=== PATIENT | female | born 1960 | race Two or more races ===

== ENCOUNTER 2016-12-26 01:42 | Emergency (ER) | payer MEDICAID ==
[~2016-12-26] VITALS: Ht 157.5 cm; Wt 76.7 kg
[~2016-12-26 01:42] MED LIST: GLIP2.5T28; METF-370
[2016-12-26 02:22] VITALS: BP 132/81
[2016-12-26 02:59] LABS: Basophils # (auto) 0 uL; Basophils % (auto) 0.4 % (0.0-2.0); CONDITION Y; Eosinophils # (auto) 0.1 uL; Eosinophils % (auto) 0.6 % (0.0-7.0); Hematocrit 33.9 % (36.0-46.0); Hemoglobin 11.4 g/dL (12.2-16.2); Lymphocytes % (auto) 19.2 % (10.0-50.0); Mean Corpuscular Hemoglobin 28.6 pg (28.0-32.0); Mean Corpuscular Hgb Conc. 33.6 g/dL (32.0-36.0); Mean Corpuscular Volume 85.2 fL (80.0-100.0); Mean Platelet Volume 7.6 fL (7.4-10.4); Monocytes # (auto) 0.6 uL; Monocytes % (auto) 5.9 % (0.0-12.0); Neutrophils # (auto) 7.7 uL; Neutrophils % (auto) 73.9 % (37.0-80.0); Platelet Count (auto) 313 10^3/uL (140-450); Red Cell Distribution Width 13.2 % (11.6-16.0); White Blood Cell 10.4 10^3/uL (4.4-10.8)
[2016-12-26 03:20] LABS: Albumin 3.4 g/dL (3.4-5.0); Anion Gap 13 (5-15); Aspartate Aminotransferase 16 U/L (15-37); BUN/Creatinine Ratio 40.5; Blood Urea Nitrogen 34 mg/dL (7-18); Calcium 8.3 mg/dL (8.5-10.1); Carbon Dioxide 20 mmol/L (21-32); Chloride 108 mmol/L (98-107); GFR African American 90 mL/min; GFR Non-African American 74 mL/min; Glucose 156 mg/dL (74-106); Potassium 4.5 mmol/L (3.5-5.1); Sodium 141 mmol/L (136-145)
[2016-12-26 03:25] LABS: Alkaline Phosphatase 105 U/L (45-117); Bilirubin, Total 0.2 mg/dL (0.2-1.0); Total Protein 8.1 g/dL (6.4-8.2)
[2016-12-26 03:27] LABS: B-Type Natriuretic Peptide 30.73 pg/mL (0-100)
[2016-12-26 03:32] LABS: Temperature: 23.5 C (20.0-25.0)
[2016-12-26 03:52] LABS: INR 0.91 (0.9-1.15); Partial Thromboplastin Time 26.2 sec (22.64-33.71); Prothrombin Time 9.9 sec (9.37-12.3)
== END 2016-12-26 04:58 | disposition left against medical advice (07) ==
LOC: EDBD 01:42 → ER 01:42
DX: R07.9 Chest pain, unspecified (principal); Z53.21 Procedure and treatment not carried out due to patient leaving prior to being seen by health care provider
CPT/HCPCS: 36415; 71020; 80053; 82962; 83735; 83880; 84443; 84484; 85025; 85379; 85610; 85730; 93005

== ENCOUNTER 2016-12-26 05:49 | Emergency (ER) | payer MEDICAID ==
[~2016-12-26] VITALS: Ht 157.5 cm; Wt 76.7 kg
[2016-12-26 07:28] LABS: Basophils # (auto) 0 uL; Basophils % (auto) 0.3 % (0.0-2.0); CONDITION Y; Eosinophils # (auto) 0.1 uL; Eosinophils % (auto) 0.7 % (0.0-7.0); Hemoglobin 11.3 g/dL (12.2-16.2); Lymphocytes # (auto) 3.1 uL; Lymphocytes % (auto) 33.1 % (10.0-50.0); Mean Corpuscular Hemoglobin 28.7 pg (28.0-32.0); Mean Corpuscular Hgb Conc. 34.3 g/dL (32.0-36.0); Mean Corpuscular Volume 83.6 fL (80.0-100.0); Mean Platelet Volume 7.8 fL (7.4-10.4); Monocytes # (auto) 0.7 uL; Monocytes % (auto) 7.9 % (0.0-12.0); Neutrophils # (auto) 5.5 uL; Platelet Count (auto) 311 10^3/uL (140-450); Red Cell Distribution Width 13.4 % (11.6-16.0); White Blood Cell 9.4 10^3/uL (4.4-10.8)
[2016-12-26 07:44] LABS: INR 0.89 (0.9-1.15); Partial Thromboplastin Time 25.3 sec (22.64-33.71); Prothrombin Time 9.7 sec (9.37-12.3)
[2016-12-26 08:04] LABS: Albumin 3.5 g/dL (3.4-5.0); BUN/Creatinine Ratio 44.7; Bilirubin, Total 0.4 mg/dL (0.2-1.0); Calcium 8.7 mg/dL (8.5-10.1); Magnesium 2.1 mg/dL (1.6-2.6); Potassium 4.8 mmol/L (3.5-5.1)
[2016-12-26 08:17] VITALS: BP 122/65
== END 2016-12-26 09:55 | disposition home or self-care (01) ==
LOC: ER 05:49
DX: R07.89 Other chest pain (principal); I10 Essential (primary) hypertension; I25.10 Atherosclerotic heart disease of native coronary artery without angina pectoris; E11.65 Type 2 diabetes mellitus with hyperglycemia; Z90.49 Acquired absence of other specified parts of digestive tract
CPT/HCPCS: 36415; 80053; 83735; 84484; 85025; 85610; 85730; 93005; 94761

== ENCOUNTER 2018-07-23 16:35 | Emergency (ER) | payer MEDICAID ==
[~2018-07-23] VITALS: Ht 152.4 cm; Wt 72.6 kg
[2018-07-23 16:43] VITALS: BP 103/70
[2018-07-23 18:36] LABS: Basophils # (auto) 0 uL; Basophils % (auto) 0.4 % (0.0-2.0); Eosinophils # (auto) 0.1 uL; Hematocrit 35.1 % (36.0-46.0); Hemoglobin 11.9 g/dL (12.2-16.2); Lymphocytes # (auto) 2.9 uL; Mean Corpuscular Hemoglobin 29.3 pg (28.0-32.0); Mean Corpuscular Hgb Conc. 33.9 g/dL (32.0-36.0); Mean Corpuscular Volume 86.2 fL (80.0-100.0); Monocytes # (auto) 0.7 uL; Monocytes % (auto) 7.2 % (0.0-12.0); Neutrophils # (auto) 5.4 uL; Neutrophils % (auto) 59.4 % (37.0-80.0); Nucleated Red Blood Cells % 0.1 %; Platelet Count (auto) 292 10^3/uL (140-450); Red Blood Cells 4.07 10^6/uL (4.0-5.20); Red Cell Distribution Width 12.4 % (11.8-14.3); White Blood Cell 9.2 10^3/uL (4.4-10.8)
[2018-07-23 18:40] LABS: Alanine Aminotransferase 17 U/L (13-56); Albumin 3.3 g/dL (3.4-5.0); Anion Gap 6 (5-15); Blood Urea Nitrogen 29 mg/dL (7-18); Calcium 8.4 mg/dL (8.5-10.1); Carbon Dioxide 25 mmol/L (21-32); Chloride 103 mmol/L (98-107); Glucose 301 mg/dL (74-106); Potassium 4.3 mmol/L (3.5-5.1); Sodium 134 mmol/L (136-145)
[2018-07-23 18:45] LABS: Alkaline Phosphatase 99 U/L (45-117); Aspartate Aminotransferase 11 U/L (15-37); Bilirubin, Total 0.2 mg/dL (0.2-1.0); GFR African American > 60 mL/min; GFR Non-African American > 60 mL/min
[2018-07-23 20:49] LABS: BUN/Creatinine Ratio 32.2
== END 2018-07-23 20:29 | disposition home or self-care (01) ==
LOC: ER 16:42
DX: R07.89 Other chest pain (principal); M79.602 Pain in left arm; I25.10 Atherosclerotic heart disease of native coronary artery without angina pectoris; E11.9 Type 2 diabetes mellitus without complications; E78.5 Hyperlipidemia, unspecified; I10 Essential (primary) hypertension; Z79.84 Long term (current) use of oral hypoglycemic drugs; Z90.49 Acquired absence of other specified parts of digestive tract; Z98.61 Coronary angioplasty status
CPT/HCPCS: 36415; 71046; 80053; 84484; 85025; 93005

== ENCOUNTER 2021-09-05 11:30 | Outpatient (CLI) | payer MEDICAID ==
[~2021-09-05] VITALS: Ht 154.9 cm; Wt 73.9 kg
[~2021-09-05 11:30] MED LIST changes: -AMLO-483 PO; -ASPI1TAB20 PO; -ATOR20TA PO; -CHLO25TA2 PO; -CHOL20007 PO; -DULA1INJ SC; -EMPA1TAB3 PO; -FERR325T20 PO; -GLIM2TAB33 PO; -LOSA-69 PO
[2021-09-06] MEDS ORDERED: CHLO25TA2 PO (09:20)
[2021-09-06] MEDS ORDERED: ASPI1TAB20 PO (09:20)
[2021-09-06] MEDS ORDERED: GLIM2TAB33 PO (09:20)
[2021-09-06] MEDS ORDERED: ATOR20TA PO (09:20)
[2021-09-06] MEDS ORDERED: LOSA-69 PO (09:20)
[2021-09-06] MEDS ORDERED: DULA1INJ SC (09:20)
[2021-09-06] MEDS ORDERED: AMLO-483 PO (09:20)
[2021-09-06] MEDS ORDERED: FERR325T20 PO (09:20)
[2021-09-06] MEDS ORDERED: CHOL20007 PO (09:20)
[2021-09-06] MEDS ORDERED: EMPA1TAB3 PO (09:22)
[2021-10-01] MEDS ORDERED: CHLO25TA2 PO (15:14)
[2021-10-01] MEDS ORDERED: GLIP10TA9 PO (15:14)
[2021-10-01] MEDS ORDERED: DULA0.5I SC (15:17)
== END 2021-09-05 12:00 | disposition home or self-care (01) ==
LOC: LAB 11:30 → EDSTATUS 10-02 11:53
PROVIDERS: ATTEND Internal Medicine
DX: Z20.822 Contact with and (suspected) exposure to COVID-19 (principal)

== ENCOUNTER → 2021-09-05 | Outpatient (CLI) | payer MEDICAID ==
[~2021-09-05] MED LIST changes: +AMLO-483 PO; +ASPI1TAB20 PO; +ATOR20TA PO; +CHLO25TA2 PO; +CHOL20007 PO; +DULA1INJ SC; +EMPA1TAB3 PO; +FERR325T20 PO; +GLIM2TAB33 PO; +LOSA-69 PO
[2021-09-05 08:30] VITALS: BP 141/57
[2021-09-05 08:49] VITALS: BP 136/59
[2021-09-05 11:31] LABS: Basophils # (auto) 0.1 10 ^3/uL (0-0.2); Basophils % (auto) 0.9 % (0.0-2.0); Eosinophils # (auto) 0.1 10 ^3/uL (0-0.8); Eosinophils % (auto) 1.2 % (0.0-7.0); Hematocrit 32.8 % (36.0-46.0); Hemoglobin 10.9 g/dL (12.2-16.2); Lymphocytes # (auto) 2.6 10 ^3/uL (0.4-5.4); Mean Corpuscular Hemoglobin 28.7 pg (28.0-32.0); Mean Corpuscular Hgb Conc. 33.1 g/dL (32.0-36.0); Mean Corpuscular Volume 86.5 fL (80.0-100.0); Monocytes # (auto) 0.6 10 ^3/uL (0-1.3); Monocytes % (auto) 7.6 % (0.0-12.0); Neutrophils # (auto) 4.8 10 ^3/uL (1.6-8.6); Neutrophils % (auto) 58.3 % (37.0-80.0); Nucleated Red Blood Cells % 0.1 %; Red Blood Cells 3.79 10^6/uL (4.0-5.20); Red Cell Distribution Width 12.5 % (11.8-14.3); White Blood Cell 8.2 10^3/uL (4.4-10.8)
[2021-09-05 11:36] LABS: BUN/Creatinine Ratio 35.5; Calcium 9.4 mg/dL (8.5-10.1); Potassium 4.2 mmol/L (3.5-5.1)
[2021-09-05 11:53] LABS: INR 0.99 (0.9-1.15); Partial Thromboplastin Time 25.3 sec (23.6-33.0)
== END | disposition home or self-care (01) ==
LOC: Rad HDHVI 08:15
PROVIDERS: ATTEND Internal Medicine
DX: Z01.812 Encounter for preprocedural laboratory examination (principal); I10 Essential (primary) hypertension; R42 Dizziness and giddiness
CPT/HCPCS: 36415; 71046; 80048; 85025; 85610; 85730; 93005; G0463

== ENCOUNTER → 2021-10-11 | Outpatient (CLI) | payer MEDICAID ==
[~2021-10-11] MED LIST changes: +AMLO-483 PO; +ASPI1TAB20 PO; +ATOR20TA PO; +CHLO25TA2 PO; +CHOL20007 PO; +CLOP75TA70 PO; +DULA0.5I SC; +EMPA1TAB3 PO; +FERR325T20 PO; +GLIM-6 PO; +GLIP10TA9 PO; -GLIP2.5T28; +LEVO500T31 PO; +LOSA-69 PO; +METF-372 PO; +PANT40T PO; +PIOG1TAB51 PO; +RANO500T3 PO
== END | disposition home or self-care (01) ==
LOC: CATH 07:55 → EDSTATUS 10-23 09:11
PROVIDERS: ATTEND Internal Medicine
DX: R94.39 Abnormal result of other cardiovascular function study (principal); Z53.8 Procedure and treatment not carried out for other reasons; Z95.5 Presence of coronary angioplasty implant and graft

== ENCOUNTER 2021-10-31 14:56 | Inpatient (IN) | payer MEDICAID ==
[~2021-10-31] VITALS: Ht 154.9 cm; Wt 73.5 kg
[~2021-10-31 14:56] MED LIST changes: -CLOP75TA70 PO; -GLIM-6 PO; -LEVO500T31 PO; -METF-372 PO; -PANT40T PO; -PIOG1TAB51 PO; -RANO500T3 PO
[2021-10-31] MEDS ORDERED: SODIUM CHLORIDE 0.9% 500 ML IVB ONE (15:15)
[2021-10-31] MEDS ORDERED: ONDANSETRON HCL 4 MG/2 ML VIAL IV ONE (15:15)
[2021-10-31 15:30] LABS: Basophils # (auto) 0.1 10 ^3/uL (0-0.2); Basophils % (auto) 0.4 % (0.0-2.0); Eosinophils # (auto) 0.1 10 ^3/uL (0-0.8); Eosinophils % (auto) 0.8 % (0.0-7.0); Hematocrit 29.1 % (36.0-46.0); Hemoglobin 9.9 g/dL (12.2-16.2); Lymphocytes # (auto) 2.1 10 ^3/uL (0.4-5.4); Lymphocytes % (auto) 15.3 % (10.0-50.0); Mean Corpuscular Hemoglobin 29.5 pg (28.0-32.0); Mean Corpuscular Hgb Conc. 34.1 g/dL (32.0-36.0); Mean Corpuscular Volume 86.7 fL (80.0-100.0); Monocytes # (auto) 1.1 10 ^3/uL (0-1.3); Monocytes % (auto) 8.4 % (0.0-12.0); Neutrophils # (auto) 10.2 10 ^3/uL (1.6-8.6); Neutrophils % (auto) 75.1 % (37.0-80.0); Red Blood Cells 3.36 10^6/uL (4.0-5.20); Red Cell Distribution Width 13.7 % (11.8-14.3); White Blood Cell 13.6 10^3/uL (4.4-10.8)
[2021-10-31 15:46] LABS: Calcium 8.5 mg/dL (8.5-10.1); Potassium 4.3 mmol/L (3.5-5.1)
[2021-10-31 15:49] LABS: BUN/Creatinine Ratio 22.2; Bilirubin, Total 0.3 mg/dL (0.2-1.0); Total Protein 7.2 g/dL (6.4-8.2)
[2021-10-31 17:56] LABS: Lactic Acid w/Reflex 2.5 mmol/L (0.4-2.0)
[2021-10-31] MEDS ORDERED: DEXTROSE (50%) 50ML SYRG IV PRN (18:30)
[2021-10-31] MEDS ORDERED: metroNIDAZOLE 500MG/100ML 100 ML IV ONE (18:30)
[2021-10-31] MEDS ORDERED: levoFLOXacin 500MG 100 ML IV ONE (18:30)
[2021-10-31] MEDS ORDERED: D5W/SOD CHL 0.45% 1,000 ML IV ONE ×2 (18:30→20:45)
[2021-10-31] MEDS ORDERED: SODIUM CHLORIDE 0.9% 1,000 ML IV ONE (19:15)
[2021-10-31] MEDS ORDERED: DOCUSATE SOD 100 MG CAP PO PRN (20:45)
[2021-10-31] MEDS ORDERED: NITROGLYCERIN 0.4 MG SL TAB SL PRN (20:45)
[2021-10-31] MEDS ORDERED: ACETAMINOPHEN 325 MG TAB PO PRN (20:45)
[2021-10-31] MEDS ORDERED: HYDROcodone-ACET 5/325MG TAB PO PRN (20:45)
[2021-10-31] MEDS ORDERED: MORPHINE SULFATE INJECTION 2 MG/ML SYRG IV PRN (20:45)
[2021-10-31 21:20] LABS: Urine Bacteria NONE SEEN /hpf (None Seen); Urine Blood Negative /uL (Negative); Urine Specific Gravity 1.012 (1.001-1.035); Urine WBC 10 /hpf (0 - 5)
[2021-10-31] MEDS ORDERED: SODIUM CHLORIDE 0.9% 2,000 ML IV ONE (21:30)
[2021-10-31] MEDS: ACCU-CHEK COMFORT CURVE STRIP VI SCH (22:00)
[2021-10-31] MEDS ORDERED: InsuLIN REG 1unit/0.01ml Soln (100units/ml) SC SCH (22:00)
[2021-10-31 22:30] VITALS: BP 147/52
[2021-11-01 05:00] VITALS: BP 125/48
[2021-11-01 06:17] LABS: Basophils # (auto) 0 10 ^3/uL (0-0.2); Basophils % (auto) 0.3 % (0.0-2.0); Eosinophils # (auto) 0.1 10 ^3/uL (0-0.8); Eosinophils % (auto) 1.3 % (0.0-7.0); Hematocrit 27.2 % (36.0-46.0); Hemoglobin 9.3 g/dL (12.2-16.2); Lymphocytes # (auto) 1.8 10 ^3/uL (0.4-5.4); Lymphocytes % (auto) 20.2 % (10.0-50.0); Mean Corpuscular Hemoglobin 30.1 pg (28.0-32.0); Mean Corpuscular Hgb Conc. 34.2 g/dL (32.0-36.0); Mean Corpuscular Volume 87.9 fL (80.0-100.0); Neutrophils # (auto) 6.1 10 ^3/uL (1.6-8.6); Neutrophils % (auto) 67.2 % (37.0-80.0); Red Cell Distribution Width 13.9 % (11.8-14.3)
[2021-11-01] MEDS: InsuLIN REG 1unit/0.01ml Soln (100units/ml) SC SCH ×3 (06:18→17:00)
[2021-11-01] MEDS: ACCU-CHEK COMFORT CURVE STRIP VI SCH ×3 (06:18→18:43)
[2021-11-01 06:31] LABS: Calcium 8.2 mg/dL (8.5-10.1); Potassium 3.9 mmol/L (3.5-5.1)
[2021-11-01 06:34] LABS: BUN/Creatinine Ratio 17.8
[2021-11-01 08:00] VITALS: BP 127/57
[2021-11-01] MEDS ORDERED: levoFLOXacin 250MG 50 ML IV SCH (10:00)
[2021-11-01 13:00] VITALS: BP 121/58
[2021-11-01 17:00] VITALS: BP 127/60
[2021-11-01] MEDS ORDERED: PIOG1TAB51 PO (19:58)
[2021-11-01] MEDS ORDERED: GLIM-6 PO (19:58)
[2021-11-01] MEDS ORDERED: CLOP75TA70 PO (19:58)
[2021-11-01] MEDS ORDERED: PANT40T PO (19:58)
[2021-11-01] MEDS ORDERED: RANO500T3 PO (19:58)
[2021-11-01] MEDS ORDERED: LEVO500T31 PO (19:59)
[2021-11-01] MEDS ORDERED: METF-372 PO (20:00)
[2021-11-01 21:00] VITALS: BP 131/56
== END 2021-11-01 21:20 | disposition home or self-care (01) | DRG 249 ==
LOC: EDUNIT# 14:56 → EDBD 14:56 → ER 14:56 → OVERFLOW 20:37 → WEST WING 22:15
PROVIDERS: ADMIT Internal Medicine; ATTEND Internal Medicine
DX: K52.9 Noninfective gastroenteritis and colitis, unspecified (principal); J69.0 Pneumonitis due to inhalation of food and vomit; N17.9 Acute kidney failure, unspecified; D64.9 Anemia, unspecified; E11.9 Type 2 diabetes mellitus without complications; I10 Essential (primary) hypertension; I25.10 Atherosclerotic heart disease of native coronary artery without angina pectoris; J98.11 Atelectasis; Z20.822 Contact with and (suspected) exposure to COVID-19; N39.0 Urinary tract infection, site not specified; Z78.9 Other specified health status; Z83.3 Family history of diabetes mellitus; Z86.73 Personal history of transient ischemic attack (TIA), and cerebral infarction without residual deficits; Z90.49 Acquired absence of other specified parts of digestive tract
CPT/HCPCS: 36415; 71045; 71250; 74176; 80048; 80053; 81001; 82150; 82962; 83605; 83690; 84484; 85025; 85048; 87040; 87045; 87086; 87427; 87493; 93005; 96361; 96365; 96375; G0378; J1815; J1956; J2405; J3490

== ENCOUNTER 2022-03-19 16:12 | Emergency (ER) | payer MEDICAID ==
[~2022-03-19] VITALS: Ht 154.9 cm; Wt 70.0 kg
[~2022-03-19 16:12] MED LIST changes: -AMLO-483 PO; -CHLO25TA2 PO; +CLOP75TA70 PO; -EMPA1TAB3 PO; +GLIM-6 PO; -GLIP10TA9 PO; +LEVO500T31 PO; -LOSA-69 PO; -METF-370; +METF-372 PO; +PANT40T PO; +PIOG1TAB51 PO; +RANO500T3 PO
[2022-03-19] MEDS ORDERED: DexAMETHasone SOD PHOS 10MG/1ML VIAL INJ IV ONE (17:15)
[2022-03-19] MEDS ORDERED: HYDROmorphone HCL 2 MG/ML VL/or syr IV ONE (17:15)
[2022-03-19] MEDS ORDERED: METOCLOPRAMIDE HCL 5MG/ml INJ 2ml VIAL IV ONE (17:15)
[2022-03-19 18:12] VITALS: BP 111/44
[2022-03-19] MEDS ORDERED: HYDR-4902 PO (18:53)
[2022-03-19] MEDS ORDERED: CYCL-837 PO (18:53)
[2022-03-19] MEDS ORDERED: DEX4T PO (18:53)
== END 2022-03-19 19:22 | disposition home or self-care (01) ==
LOC: EDBD 16:12 → ER 16:12
DX: M54.16 Radiculopathy, lumbar region (principal); E11.9 Type 2 diabetes mellitus without complications; M62.830 Muscle spasm of back; E78.5 Hyperlipidemia, unspecified; I10 Essential (primary) hypertension; Z90.49 Acquired absence of other specified parts of digestive tract; Z86.73 Personal history of transient ischemic attack (TIA), and cerebral infarction without residual deficits
CPT/HCPCS: 72131; 93005; 96374; 96375; 99285; J1100; J1170; J2765